=== PATIENT | male | born 1960 | race Caucasian/White ===

== ENCOUNTER 2018-01-02 12:28 | Emergency (ER) | payer OTHER ==
[~2018-01-02] VITALS: Ht 180.3 cm; Wt 123.7 kg
[~2018-01-02 12:28] MED LIST: ASPIR-TRIN325 M1 PO; CIPRO500 MG PO; CIPRODEX OTIC7.5 ML RIGHT EAR; CLINDAMYCIN HC300 MG PO; DOCUSATE SODIU100 MG PO; FERROUS SULFAT325 MG PO; GLYNASE6 MG PO; HUMALOG MI100 UNIT/5 SC; HUMALOG100 UNIT/1 SC; KOMBIGLYZE XR1 EAC2 PO; LITE COAT ASPI325 M1 PO; MILK OF MAGNESI10 ML PO; OXYCODONE HCL5 MG PO; OXYCONTIN10 MG PO; OXYCONTIN20 MG PO; POLYETHYLENE GL17 GM PO; SANTYL30 GM TP; ZETIA10 MG PO; ZYVOX600 MG PO; [UNRECOGNIZED DRUG - REMARK]
[2018-01-02] MEDS ORDERED: CIPROFLOXACIN H10 ML RIGHT EYE (14:11)
[2018-01-02 14:22] VITALS: BP 144/69
== END 2018-01-02 14:25 | disposition home or self-care (01) ==
LOC: EME 12:28
DX: S05.01XA Injury of conjunctiva and corneal abrasion without foreign body, right eye, initial encounter (principal); G89.29 Other chronic pain; E11.9 Type 2 diabetes mellitus without complications; M54.9 Dorsalgia, unspecified; Z79.84 Long term (current) use of oral hypoglycemic drugs; Z79.82 Long term (current) use of aspirin; Z87.891 Personal history of nicotine dependence; Z79.4 Long term (current) use of insulin
CPT/HCPCS: 99281; 99284

== ENCOUNTER 2018-02-03 11:08 | Emergency (ER) | payer OTHER ==
[~2018-02-03] VITALS: Ht 180.3 cm; Wt 127.2 kg
[~2018-02-03 11:08] MED LIST changes: +CIPROFLOXACIN H10 ML RIGHT EYE
[2018-02-03 11:49] LABS: BASOPHIL (%) 0.5 % (0-1); BASOPHIL COUNT 0.1 K/uL (0-0.1); EOSINOPHIL (%) 1.3 % (0-5); EOSINOPHIL COUNT 0.2 K/uL (0-0.3); HEMATOCRIT 43.2 % (38.0-50.0); IMMATURE GRANULOCYTE (%) 0.5 % (0.0-0.7); LYMPHOCYTE COUNT 2.4 K/uL (1.0-2.8); MCH 31.2 PG (29.0-34.0); MCHC 34.7 G/DL (30.0-36.0); MCV 89.8 FL (86-99); MONOCYTE (%) 5.5 % (3-12); MONOCYTE COUNT 0.7 K/uL (0-0.8); NEUTROPHIL (%) 73.2 % (45-76); NEUTROPHIL COUNT 9.4 K/uL (1.8-6.4); PLATELET COUNT 227 K/uL (156-360); RBC DIS.WIDTH-CV 13.1 % (11.8-14.6); RBC DIS.WIDTH-SD 42.7 % (39-53); RED BLOOD COUNT 4.81 M/uL (4.00-5.50); WHITE BLOOD COUNT 12.8 K/uL (4.1-10.2)
[2018-02-03 12:09] LABS: ALBUMIN 3.9 g/dL (3.2-4.8); CHLORIDE 105 mEq/L (99-109); POTASSIUM 4.5 mEq/L (3.7-5.4); SODIUM 140 mEq/L (136-147)
[2018-02-03 12:12] LABS: GLUCOSE 281 mg/dL (70-99); TOTAL PROTEIN 6.8 g/dL (6.4-8.3)
[2018-02-03 12:13] LABS: TOTAL BILIRUBIN 0.2 mg/dL (0.0-1.0)
[2018-02-03 12:15] LABS: ALKALINE PHOSPHATASE 70 IU/L (3-129); CREATININE 0.9 mg/dL (0.6-1.3); GFR ESTIMATE (CALCULATED) > 59 mL/min/ (58.99-99999)
[2018-02-03 12:16] LABS: UREA NITROGEN (BUN) 8 mg/dL (9-23)
[2018-02-03 12:17] LABS: AST (GOT) 16 IU/L (2-34)
[2018-02-03 12:18] LABS: ALT (GPT) 24 IU/L (3-49)
[2018-02-03 16:02] LABS: APPEARANCE SL.HAZY ((CLEAR)); BILIRUBIN NEGATIVE; BLOOD MODERATE; COLOR AMBER ((YELLOW)); GLUCOSE (STRIP) 150; KETONES 5; LEUKOCYTES NEGATIVE; NITRITE NEGATIVE; PROTEIN (STRIP) 100; UROBILINOGEN 0.2 MG/DL (0.2-1.0)
[2018-02-03 16:28] LABS: BACTERIA RARE /HPF; EPITHELIAL CELLS RARE /HPF; MUCUS NONE SEEN /LPF; UCUL ADDED? NO; WHITE BLOOD CELLS RARE /HPF (0-5)
[2018-02-03] MEDS ORDERED: ZOFRAN ODT4 MG PO (16:36)
[2018-02-03] MEDS ORDERED: KETOROLAC TROME10 MG PO (16:36)
[2018-02-03] MEDS ORDERED: FLOMAX0.4 MG PO (16:36)
[2018-02-03 18:03] VITALS: BP 166/75
== END 2018-02-03 18:05 | disposition home or self-care (01) ==
LOC: EME 11:08
PROVIDERS: Physician Assistant Medical
DX: N13.2 Hydronephrosis with renal and ureteral calculous obstruction (principal); E11.9 Type 2 diabetes mellitus without complications; E78.5 Hyperlipidemia, unspecified; I10 Essential (primary) hypertension
CPT/HCPCS: 74176; 80053; 81003; 85025; 99281; 99285; J1885; J2405; J7030

== ENCOUNTER 2018-02-18 06:27 | Day surgery (SDC) | payer OTHER ==
[~2018-02-18] VITALS: Ht 180.3 cm; Wt 122.9 kg
[~2018-02-18 06:27] MED LIST changes: +BACTRIM,SEPT1 TABLET PO; +ENDOCET 10-3251 EACH PO; +FLOMAX0.4 MG PO; +INVOKANA300 MG PO; +JENTADUETO 2.51 EAC2 PO; +KETOROLAC TROME10 MG PO; +LIPITOR10 MG PO; +NEURONTIN400 MG PO; +ZOFRAN ODT4 MG PO
[2018-02-18] MEDS ORDERED: MINIPRESS2 MG PO (07:04)
[2018-02-18] MEDS ORDERED: EFFEXOR37.5 MG PO (07:06)
[2018-02-18 07:12] VITALS: BP 127/66
[2018-02-18 10:40] VITALS: BP 138/76
[2018-02-18 11:42] VITALS: BP 144/74
[2018-02-18 12:30] VITALS: BP 149/86
== END 2018-02-18 12:33 | disposition home or self-care (01) ==
LOC: SDC 06:27
PROVIDERS: Urology
DX: N20.1 Calculus of ureter (principal); I10 Essential (primary) hypertension; E78.01 Familial hypercholesterolemia; E78.1 Pure hyperglyceridemia; E11.65 Type 2 diabetes mellitus with hyperglycemia; E66.01 Morbid (severe) obesity due to excess calories; Z68.37 Body mass index [BMI] 37.0-37.9, adult; Z79.82 Long term (current) use of aspirin; Z87.891 Personal history of nicotine dependence; Z79.4 Long term (current) use of insulin; Z86.73 Personal history of transient ischemic attack (TIA), and cerebral infarction without residual deficits
CPT/HCPCS: 74018; 76000; 82365 90; 82948; 87641; 93005; C1769; C2625; J0330; J0690; J2250; J2405; J3010

== ENCOUNTER 2018-05-18 06:41 | Emergency (ER) | payer OTHER ==
[~2018-05-18] VITALS: Ht 180.3 cm; Wt 128.8 kg
[~2018-05-18 06:41] MED LIST changes: +EFFEXOR37.5 MG PO; +MINIPRESS2 MG PO
[2018-05-18] MEDS ORDERED: PERCOCET 10/1 TABLET PO (07:06)
[2018-05-18 07:26] VITALS: BP 148/98
== END 2018-05-18 07:27 | disposition home or self-care (01) ==
LOC: EME 06:41
DX: S46.002A Unspecified injury of muscle(s) and tendon(s) of the rotator cuff of left shoulder, initial encounter (principal); G89.29 Other chronic pain; M25.512 Pain in left shoulder; E11.9 Type 2 diabetes mellitus without complications
CPT/HCPCS: J1100